=== PATIENT | male | born 1950 ===

== ENCOUNTER 2018-12-04 11:19 | Outpatient (CLI) | payer OTHER | END 2018-12-04 11:20 | disposition home or self-care (01) | LOC: C.PAT 11:19 ==

== ENCOUNTER → 2018-12-12 | Day surgery (SDC) | payer OTHER ==
[2018-12-04 11:36] VITALS: BMI 22.6
[~2018-12-12] MED LIST: Carbachol 0.01% IO ONE; Chondroitin/Hyaluronate Opth Syringe KIT (0.55 ml-0.5 ml) IO ONE; Hyaluronidase Human, Recombi 150 U/ML VIAL ONE; Ketorolac Tromethamine 0.5% Opth Soln (3 ml) OD SCH; Lactated Ringer's 500 ML IV ONE; Lidocaine 2% MPF (5 ml) Inj ONE; Midazolam 2 MG/2 ML VIAL ONE; Ofloxacin 0.3% Ophth Soln OD SCH; Povidone Iodine Ophthalmic 5% Soln ONE; Tetracaine 0.5% Ophth (OR ONLY) ONE; Tropicamide 1% Opht SOLUTION OD SCH; acetaZOLAMIDE 500 mg SR Cap PO ONE
[2018-12-12] MEDS: Tobramycin/Dexamethasone OPHT OINT ONE ×2 (09:28→09:44)
[2018-12-12 10:23] VITALS: O2SAT 98
[2018-12-12 12:00] VITALS: BP 108/62; PULSE 74; RESP 18; TEMP 97.7
--- NOTE | 2018-12-12 21:08 | OP ---
PROCEDURE DATE: 12/12/2018 PREOPERATIVE DIAGNOSIS: Mature cataract, right eye. POSTOPERATIVE DIAGNOSIS: Mature cataract, right eye. OPERATIVE PROCEDURE: Phacoemulsification, right eye, insertion of posterior chamber lens implant. SURGEON: Thong Wilkes MD CO-SURGEON: Parminder Thomas MD ANESTHESIA: Local with IV sedation. PROCEDURE: The patient was brought into the operating room, placed in supine position, prepped and draped in the usual fashion for ophthalmic surgery. Lid speculum was inserted, lids and exposing globe. A side-port incision was made superiorly and inferiorly with a disposable sharp blade. Anterior chamber was filled with Viscoat. A near clear corneal incision was made temporally with a 2.75-mm keratome. Capsulorrhexis was then performed with Utrata forceps. Hydrodissection carried out with balanced salt solution. Nucleus was phacoemulsified. Remaining cortical fragments were removed with a split irrigation and aspiration system. The capsular sac was filled with Provisc. A posterior chamber lens was then injected into the capsular sac and rotated into horizontal position. Provisc was aspirated out of the anterior chamber. The pupil was constricted with Miochol. The wound was found to be watertight. Topical Betadine, Timoptic, and TobraDex ointment and pressure patch were applied. The patient tolerated the procedure well. Thong Wilkes MD
== END | disposition home or self-care (01) ==
LOC: C.SDS 06:42
PROVIDERS: ATTEND Ophthalmology
DX: H25.11 Age-related nuclear cataract, right eye (principal)
CPT/HCPCS: 66984; 82948; J2250; J3010; J3470; J7120; V2632